=== PATIENT | female | born 1955 | race Caucasian/White ===

== ENCOUNTER 2019-01-24 12:02 | Emergency (ER) | payer MEDICARE ==
[~2019-01-24] VITALS: Ht 165.1 cm; Wt 67.1 kg
--- OUTSIDE RECORDS SUMMARY | 2019-01-24 12:05 | XMS REPORT ---
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 Allergies, Adverse Reactions, Alerts Allergy Name Allergy Type Status Severity Reaction(s) Onset Date Inactive Date Treating Clinician Comments Penicillins DA Active SV 2017-05-04 00:00:00 gold Au 198 DA Active PA 2017-05-04 00:00:00 juaquin DA Active MO 2017-05-04 00:00:00 Medications This patient has no known medications.
--- NOTE | 2019-01-24 12:44 | Diagnostic Imaging Report ---
EXAMINATION: SHOULDER RIGHT COMPLETE INDICATION: Right shoulder pain COMPARISON: None FINDINGS: No acute fracture or dislocation. Alignment is anatomic. No substantial degenerative change. The soft tissues appear unremarkable. The partially visualized portions of the right lung are clear. IMPRESSION: No osseous injury. Signed by: Sandra Foss MD on 01/24/2019 12:41 PM
== END 2019-01-24 12:44 | disposition home or self-care (01) ==
LOC: ER 12:02
DX: M25.511 Pain in right shoulder (principal); S46.811A Strain of other muscles, fascia and tendons at shoulder and upper arm level, right arm, initial encounter; F17.290 Nicotine dependence, other tobacco product, uncomplicated
CPT/HCPCS: 99284

== ENCOUNTER 2020-05-06 10:24 | Emergency (ER) | payer MEDICARE ==
[~2020-05-06] VITALS: Ht 165.1 cm; Wt 67.1 kg
[2020-05-06] MEDS ORDERED: IBUPROFEN 600 MG TAB PO STA (10:38)
== END 2020-05-06 12:07 | disposition home or self-care (01) ==
LOC: ER 10:46
DX: S63.501A Unspecified sprain of right wrist, initial encounter (principal); W18.30XA Fall on same level, unspecified, initial encounter; Y93.01 Activity, walking, marching and hiking; E78.5 Hyperlipidemia, unspecified; E03.9 Hypothyroidism, unspecified; F43.10 Post-traumatic stress disorder, unspecified; F41.9 Anxiety disorder, unspecified
CPT/HCPCS: 99283